=== PATIENT | male | born 1955 | race Caucasian/White ===

== ENCOUNTER 2016-05-23 22:14 | Emergency (ER) | payer MEDICARE, OTHER ==
[~2016-05-23] VITALS: Ht 170.2 cm; Wt 80.0 kg
[~2016-05-23 22:14] MED LIST: AMLO-511 PO; ASPI-825 PO; CLON.1 PO; FOLI1 PO; GABA-529 PO; HYDR25 PO; INSU100C4 SQ; INSU100C6 SQ; LISI-661 PO; OXYC-165 PO; PANT40TA25 PO; PHOSLOC PO; VIT1TABL66 PO
[2016-05-23 22:46] LABS: GLUCOSE,POINT OF CARE 255 MG/DL (70-110)
[2016-05-24] MEDS ORDERED: PROMETHAZINE HCL 25 MG/ML VIAL IM ONE (00:30)
[2016-05-24] MEDS ORDERED: HYDROmorphone 2 MG/ML SYRINGE IM ONE (00:30)
[2016-05-24 01:24] VITALS: BP 121/69
== END 2016-05-24 01:28 | disposition home or self-care (01) ==
LOC: EMS 22:16
DX: S20.212A Contusion of left front wall of thorax, initial encounter (principal); S40.022A Contusion of left upper arm, initial encounter; E11.65 Type 2 diabetes mellitus with hyperglycemia; E11.29 Type 2 diabetes mellitus with other diabetic kidney complication; N28.9 Disorder of kidney and ureter, unspecified; I10 Essential (primary) hypertension; Z79.4 Long term (current) use of insulin; W06.XXXA Fall from bed, initial encounter; Y93.89 Activity, other specified; Y92.89 Other specified places as the place of occurrence of the external cause; Y99.8 Other external cause status
CPT/HCPCS: 71101; 73060; 82962; 96372; 99284; J1170; J2550

== ENCOUNTER 2017-02-18 13:09 | Emergency (ER) | payer MEDICARE, OTHER ==
[~2017-02-18] VITALS: Ht 167.6 cm; Wt 83.0 kg
[~2017-02-18 13:09] MED LIST changes: +CLON-570 PO; -CLON.1 PO; -HYDR25 PO; +HYDR25TA84 PO
[2017-02-18] MEDS ORDERED: DOCU250C91 PO (13:25)
[2017-02-18] MEDS ORDERED: FOLI0.8T2 PO (13:25)
[2017-02-18] MEDS ORDERED: VITAD1000 PO (13:25)
[2017-02-18] MEDS ORDERED: SEVEC800 PO (13:25)
[2017-02-18] MEDS ORDERED: FAMO20 PO (13:25)
[2017-02-18 13:28] LABS: GLUCOSE,POINT OF CARE 220 MG/DL (70-110)
[2017-02-18] MEDS ORDERED: SODIUM CHLORIDE 0.9% 1,000 ML IV ONE (13:30)
[2017-02-18 13:49] LABS: BASOPHILS % (AUTO) 0.7 % (0.0-2.0); EOSINOPHILS % (AUTO) 6.5 % (1.0-6.0); HEMATOCRIT 37.9 % (41-53); HEMOGLOBIN 12.9 g/dL (13.5-17.5); LYMPHOCYTES # (AUTO) 1.5 K/uL (1.0-4.8); LYMPHOCYTES % (AUTO) 30.4 % (22.0-44.0); MEAN CORPUSCULAR HEMOGLOBIN 29.7 pg (26.0-34.0); MEAN CORPUSCULAR HGB CONC 34.1 G/dL (31.0-37.0); MEAN CORPUSCULAR VOLUME 87 fL (80-100); MONOCYTES # (AUTO) 0.5 K/uL (0.1-1.0); MONOCYTES % (AUTO) 11.1 % (2.0-9.0); NEUTROPHILS # (AUTO) 2.5 K/uL (1.8-7.7); NEUTROPHILS % (AUTO) 51.3 % (40.0-70.0); PLATELET COUNT (AUTO) 166 K/uL (150-450); RED BLOOD CELL COUNT(AUTO) 4.35 MIL/uL (4.50-5.90); RED CELL DISTRIBUTION WIDTH 14.9 % (11.5-14.5); WHITE BLOOD COUNT (AUTO) 4.9 K/uL (4.5-11.0)
[2017-02-18 14:07] LABS: CALCIUM, TOTAL 9.3 mg/dL (8.8-10.5); CREATININE 8.07 mg/dL (0.60-1.30); POTASSIUM 4.6 mmol/L (3.5-5.1)
[2017-02-18 14:13] LABS: ALBUMIN 4.2 g/dL (3.4-5.0); BILIRUBIN,TOTAL 0.5 mg/dL (0.1-1.0); TOTAL PROTEIN, SERUM 8.2 g/dL (6.4-8.2)
[2017-02-18 14:37] LABS: LACTIC ACID 2.3 mmol/L (0.4-2.0)
[2017-02-18 15:38] VITALS: BP 124/74
== END 2017-02-18 15:47 | disposition home or self-care (01) ==
LOC: EMS 13:10
DX: E11.22 Type 2 diabetes mellitus with diabetic chronic kidney disease (principal); I12.0 Hypertensive chronic kidney disease with stage 5 chronic kidney disease or end stage renal disease; N18.6 End stage renal disease; Z99.2 Dependence on renal dialysis; Z79.4 Long term (current) use of insulin
CPT/HCPCS: 36415; 71010; 80053; 82948; 82962; 83605; 84484; 85025; 93005; 96360; 99285; J7030

== ENCOUNTER 2017-03-05 12:09 | Emergency (ER) | payer MEDICARE, OTHER ==
[~2017-03-05] VITALS: Ht 167.6 cm; Wt 82.7 kg
[~2017-03-05 12:09] MED LIST changes: -AMLO-511 PO; -CLON-570 PO; +DOCU250C91 PO; +FAMO20 PO; +FOLI0.8T2 PO; -INSU100C4 SQ; -OXYC-165 PO; -PANT40TA25 PO; +SEVEC800 PO; -VIT1TABL66 PO; +VITAD1000 PO
[2017-03-05 14:20] VITALS: BP 94/57
[2017-03-05 14:22] LABS: BASOPHILS % (AUTO) 0.5 % (0.0-2.0); EOSINOPHILS % (AUTO) 4.9 % (1.0-6.0); HEMATOCRIT 31.7 % (41-53); HEMOGLOBIN 10.7 g/dL (13.5-17.5); LYMPHOCYTES # (AUTO) 1.2 K/uL (1.0-4.8); MEAN CORPUSCULAR HEMOGLOBIN 29.1 pg (26.0-34.0); MEAN CORPUSCULAR HGB CONC 33.7 G/dL (31.0-37.0); MEAN CORPUSCULAR VOLUME 86 fL (80-100); MONOCYTES # (AUTO) 0.5 K/uL (0.1-1.0); MONOCYTES % (AUTO) 9.5 % (2.0-9.0); NEUTROPHILS # (AUTO) 3.5 K/uL (1.8-7.7); NEUTROPHILS % (AUTO) 63.1 % (40.0-70.0); PLATELET COUNT (AUTO) 178 K/uL (150-450); RED BLOOD CELL COUNT(AUTO) 3.67 MIL/uL (4.50-5.90); RED CELL DISTRIBUTION WIDTH 15.2 % (11.5-14.5); WHITE BLOOD COUNT (AUTO) 5.5 K/uL (4.5-11.0)
[2017-03-05] MEDS ORDERED: TOBRAMYCIN/DEXAMETHASONE 5 ML OPHTHALMIC SUSPENSION OS ONE (14:30)
[2017-03-05 14:32] LABS: ANION GAP 13 mmol/L (8-16); CALCIUM, TOTAL 8.6 mg/dL (8.8-10.5); CARBON DIOXIDE 27 mmol/L (22-29); CHLORIDE 95 mmol/L (98-107); CREATININE 9.94 mg/dL (0.60-1.30); GLOMERULAR FILTR. RATE CALC 5 mL/min (>60); SODIUM SERUM 135 mmol/L (136-145); UREA NITROGEN, BLOOD 70 mg/dL (7-18)
[2017-03-05 14:33] LABS: PROTHROMBIN TIME 10.1 SEC (9.4-11.6)
[2017-03-05 14:39] LABS: ALANINE AMINOTRANSFERASE 16 U/L (12-78); ALBUMIN 3.8 g/dL (3.4-5.0); ASPARTATE AMINOTRANSFERASE 8 U/L (15-37); BILIRUBIN,TOTAL 0.3 mg/dL (0.1-1.0); CREATINE KINASE, TOTAL 74 U/L (39-308); TOTAL PROTEIN, SERUM 7.6 g/dL (6.4-8.2)
[2017-03-05 14:56] LABS: B-TYPE NATRIURETIC PEPTIDE 100 pg/mL (0-100)
== END 2017-03-05 15:29 | disposition home or self-care (01) ==
LOC: EMS 12:11
DX: H10.9 Unspecified conjunctivitis (principal); E11.9 Type 2 diabetes mellitus without complications; I10 Essential (primary) hypertension; Z79.4 Long term (current) use of insulin
CPT/HCPCS: 70450; 93005; 99285

== ENCOUNTER 2017-03-14 10:48 | Emergency (ER) | payer MEDICARE, OTHER ==
[~2017-03-14] VITALS: Ht 167.6 cm; Wt 82.0 kg
[2017-03-14 11:22] LABS: GLUCOSE,POINT OF CARE 318 MG/DL (70-110)
[2017-03-14] MEDS ORDERED: PROPARACAINE HCL 0.5% 15 ML OPHTHALMIC SOLUTION OS ONE (12:00)
[2017-03-14] MEDS ORDERED: FLUORESCEIN SODIUM 1 MG STRIP ONE (12:02)
[2017-03-14 12:23] LABS: BASOPHILS % (AUTO) 0.3 % (0.0-2.0); EOSINOPHILS % (AUTO) 4.4 % (1.0-6.0); HEMATOCRIT 33.3 % (41-53); HEMOGLOBIN 11.4 g/dL (13.5-17.5); LYMPHOCYTES # (AUTO) 1.1 K/uL (1.0-4.8); LYMPHOCYTES % (AUTO) 22.7 % (22.0-44.0); MEAN CORPUSCULAR HEMOGLOBIN 29.7 pg (26.0-34.0); MEAN CORPUSCULAR HGB CONC 34.2 G/dL (31.0-37.0); MEAN CORPUSCULAR VOLUME 87 fL (80-100); MONOCYTES # (AUTO) 0.6 K/uL (0.1-1.0); MONOCYTES % (AUTO) 11.9 % (2.0-9.0); NEUTROPHILS % (AUTO) 60.7 % (40.0-70.0); PLATELET COUNT (AUTO) 199 K/uL (150-450); RED BLOOD CELL COUNT(AUTO) 3.83 MIL/uL (4.50-5.90); RED CELL DISTRIBUTION WIDTH 15.8 % (11.5-14.5)
[2017-03-14] MEDS ORDERED: CIPROFLOXACIN HCL 0.3% 3.5 GM OPHTHALMIC OINTMENT OS ONE (12:30)
[2017-03-14 12:32] LABS: CALCIUM, TOTAL 9.4 mg/dL (8.8-10.5); CREATININE 7.42 mg/dL (0.60-1.30); POTASSIUM 4.4 mmol/L (3.5-5.1)
[2017-03-14 12:37] LABS: BILIRUBIN,TOTAL 0.3 mg/dL (0.1-1.0); TOTAL PROTEIN, SERUM 8.2 g/dL (6.4-8.2)
[2017-03-14 12:45] VITALS: BP 152/82
== END 2017-03-14 13:28 | disposition home or self-care (01) ==
LOC: EMS 10:50
DX: H16.202 Unspecified keratoconjunctivitis, left eye (principal); I10 Essential (primary) hypertension; E11.29 Type 2 diabetes mellitus with other diabetic kidney complication; N28.9 Disorder of kidney and ureter, unspecified; Z79.4 Long term (current) use of insulin; Z99.2 Dependence on renal dialysis
CPT/HCPCS: 82962; 99284